=== PATIENT | male | born 1995 ===

== ENCOUNTER 2022-12-13 08:09 | Emergency (ER) | payer SELFPAY ==
[2022-12-13] MEDS ORDERED: Dexamethasone 10 MG/ML SDV IVPUSH STA (08:20)
[2022-12-13] MEDS ORDERED: Dexamethasone 10 MG/ML SDV PO ONE (08:21)
== END 2022-12-13 08:40 | disposition home or self-care (01) ==
LOC: MW.ED 08:09
DX: J02.9 Acute pharyngitis, unspecified (principal)
CPT/HCPCS: 99282; J8540; 99284

== ENCOUNTER 2022-12-15 16:32 | Emergency (ER) | payer SELFPAY ==
[2022-12-15] MEDS ORDERED: Sodium Chloride 0.9% 1,000 ML IV ONE (18:15)
[2022-12-15] MEDS ORDERED: Ketorolac 30 MG/ML SDV IVPUSH ONE (18:15)
[2022-12-15] MEDS ORDERED: Lidocaine 2% Viscous Solution 15 ML UD PO ONE (18:17)
[2022-12-15 18:37] LABS: BASOPHILS PERCENT AUTO 0.3 % (0.0-1.5); EOSINOPHILS ABSOLUTE AUTO 0.1 K/uL (0.0-0.7); EOSINOPHILS PERCENT AUTO 0.9 % (0.0-7.0); HEMATOCRIT 48.8 % (38.0-50.0); HEMOGLOBIN 16.4 g/dL (13.0-17.0); LYMPHOCYTES ABSOLUTE AUTO 2.6 K/uL (0.6-2.4); LYMPHOCYTES PERCENT AUTO 34.9 % (16.0-40.0); MEAN CORPUSCULAR HEMOGLOBIN 27.3 pg (27.0-32.0); MEAN CORPUSCULAR HGB CONC 33.6 g/dL (31.0-37.0); MEAN CORPUSCULAR VOLUME 81.3 fL (80.0-98.0); MONOCYTES ABSOLUTE AUTO 0.6 K/uL (0.0-0.8); MONOCYTES PERCENT AUTO 8.6 % (0.0-15.0); NEUTROPHILS ABSOLUTE AUTO 4.1 K/uL (1.4-5.7); NEUTROPHILS PERCENT AUTO 55.3 % (48.0-80.0); NRBC ABSOLUTE 0 K/uL; PLATELET COUNT,PLT 356 K/uL (150-400); WHITE BLOOD CELL COUNT,WBC 7.46 K/uL (4.0-11.0)
[2022-12-15 19:04] LABS: ALBUMIN 3.9 g/dL (3.4-5.0); BILIRUBIN TOTAL 0.7 mg/dL (0.2-1.0); CALCIUM 8.4 mg/dL (8.5-10.1); CARBON DIOXIDE,CO2 26.6 mmol/L (21.0-32.0); CREATININE 0.9 mg/dL (0.8-1.3); EST CRCL DRUG DOSING (CG) 96.9 mL/min; POTASSIUM,K 3.7 mmol/L (3.5-5.1); PROTEIN TOTAL,TP 7.8 g/dL (6.4-8.2)
[2022-12-15] MEDS ORDERED: Iopamidol 755 MG/ML 500 ML Multipack Bottle IVPUSH STA (19:08)
== END 2022-12-15 20:30 | disposition home or self-care (01) ==
LOC: MW.ED 16:32
DX: J02.9 Acute pharyngitis, unspecified (principal); K21.9 Gastro-esophageal reflux disease without esophagitis; J45.909 Unspecified asthma, uncomplicated
CPT/HCPCS: 36415; 70491; 80053; 85025; 86308; 96361; 96374; 99283; A9270; J1885; J7030; Q9967; 99284